=== PATIENT | female | born 1990 | race Caucasian/White ===

== ENCOUNTER 2016-03-30 17:10 | Emergency (ER) | payer OTHER ==
[~2016-03-30] VITALS: Ht 157.5 cm; Wt 90.0 kg
[~2016-03-30 17:10] MED LIST: CITA20TA11 PO; ESTR1PAT10 TD; LEVO25TA2 PO; MECL-114 PO; MULT1CAP33 PO; ZOF8 PO
[2016-03-30 17:13] VITALS: BP 132/97; PULSE 78; RESP 18; O2SAT 100
--- NOTE | 2016-03-30 17:42 | ED.REPORT ---
HPI-Chest Pain Under 40 Date of Service Mar 30, 2016 ED Provider: Jim Bruce Patient is a 25 year old female who presents to the ED complaining of midline chest pain onset one hour ago while studying. She reports that it felt like she had the wind knocked out of her and the episode lasted about 10 minutes. Her most sever pain was a 7/10, radiated up into her throat, and was exacerbated by moving. Associated symptoms include fever and SOB. She denies diaphoresis, leg swelling, palpitations, or any other symptoms. She is not on any medications but does use Estradiol patches. Patient had allergy testing done yesterday. She was seen at Urgent Care last week for cough and has been taking a course of abx due to a possible pneumonia Biaxin She did not take any medications at home to reduce her pain. Nursing Notes Stated Complaint: CHEST PAIN Chief Complaint: Chest Pain Nursing Notes Reviewed: Yes ([employer], [employer] not reconciled) Allergies: Coded Allergies: doxycycline (Verified Allergy, Severe, rash, heat flushing, 11/26/15) meningococcal vaccine A and C (Verified Allergy, Severe, Rash, 11/26/15) tramadol HCl (Verified Allergy, Severe, rash, 11/26/15) tuberculin, purified protein deriva (Verified Allergy, Severe, 11/26/15) Contrast Media (Verified Adverse Reaction, Severe, DIDN'T LIKE THE WAY IT MADE HER FEEL, 11/26/15) Sulfa (Sulfonamide Antibiotics) (Verified Adverse Reaction, Severe, FACIAL FLUSHING, 11/26/15) Uncoded Allergies: PPD (Adverse Reaction, Severe, always reads positive, 10/20/13) Scheduled Citalopram (Citalopram) 20 Mg Tablet 20 MG PO HS Estradiol (Vivelle-Dot) 1 Each Patch.tdsw 1 PATCH TD 2x/week MUST USE VIVELLE-DOT AND NOT THE GENERIC ESTRADIOL(CAUSES HEART PALPITATIONS AND HEAT FLASHES)!! Levothyroxine (Synthroid) 25 Mcg Tablet 12.5-25 MCG PO HS MUST USE SYNTHROID- DO NOT USE GENERIC LEVOTHYROXINE (CAUSES HEART PALPITATION)! 12.5-25mcg take 12.5mcg po HS every other night and alternate with 25mcg po HS every other night Multivitamin (Multivitamins) 1 Each Capsule 1 EACH PO DAILY Scheduled PRN Meclizine (Bonine) 25 Mg Tab.chew 25 MG PO TID PRN PRN For Dizziness Ondansetron (Zofran) 8 Mg Tab 8 MG PO Q 8HRS PRN PRN For Nausea General Time Seen by MD: 17:40 Chief Complaint Chest pain Hx Obtained From: Patient Arrived By: Walk-in Sudden in Onset?: Yes Onset Occurred: Just prior to arrival Symptom Duration: Since onset Recent Healthcare: Recent doctor visit Similar Sx Previous: No Risk Factors PERC Rule Exogenous estrogen use Past Medical History Past Medical History Notes: PERC rule positive due to exogenous estrogen use Past Medical History PCOS UTIs Hypothyroid Anxiety Depression Non-fatty liver disease Reports: Asthma Past Surgical History Removal of both ovaries Reports: Cholecystectomy, Hysterectomy Reports: Tubal ligation Family History Uncle has arythmia Mother has tachycardia with spontaneous conversion after about 20 min. Smoking History Never Smoker Social History Alcohol Use: "Social" Drug Use: Denies drug use Other Social History: Good social support, , Local resident Occupation lives with , works as FITNESS PROFESSIONAL and [employer] Ambulatory Status Independent Review of Systems Constitutional: Reports: Fever Respiratory: Reports: Shortness of breath Cardiovascular: Reports: Chest pain, Denies: Palpitations Musculoskeletal: Denies: Extremity swelling Skin: Denies Diaphoresis Complete sys rev & neg: except as marked. Physical Exam Initial Vital Signs Vital Signs (First) Date Time Temp Pulse Resp B/P Pulse Ox O2 Delivery O2 Flow Rate FiO2 03/30/16 17:13 36.3 78 18 132/97 100 03/30/16 20:14 Room Air Initial VS: Reviewed, Vital signs normal Head / Eyes: Atraumatic, Normocephalic Neck: Full range of motion Abdomen / GI: Soft, Non-tender Skin: Warm, Dry Neurologic: Alert, Oriented, Nonfocal Psychiatric: Mood/affect normal, Behavior normal, Normal thought content General/Constitutional: Awake, Alert, Well appearing, Well developed Respiratory / Chest: Breath sounds NL, Breath sounds = bilat, No respiratory distress Cardiovascular: Heart rate NL, Regular rhythm, Heart sounds NL Interpretation & Diagnostics Lab Results Interpretation Result Diagram: 03/30/16 1840 03/30/16 1840 Test 03/30/16 18:40 White Blood Count 12.7th/mm3 (3.8-10.1) Red Blood Count 5.08mil/mm3 (3.90-5.20) Hemoglobin 14.2g/dL (12.0-15.6) Hematocrit 40.6% (35.0-46.0) Mean Corpuscular Volume 79.9fL (81-100) Mean Corpuscular Hemoglobin 28.0pg (27.0-35.0) Mean Corpuscular Hemoglobin Concent 35.0% (32.0-37.0) Red Cell Distribution Width 13.3% (12.3-15.4) Platelet Count 277bil/L (150-400) Neutrophils (%) (Auto) 68.7% (40-74) Lymphocytes (%) (Auto) 22.4% (14-46) Monocytes (%) (Auto) 6.9% (4-12) Eosinophils (%) (Auto) 1.3% (0-5) Basophils (%) (Auto) 0.4% (0-3) D-Dimer < 0.5mg/L (<0.50) Sodium Level 137mEq/L (134-144) Potassium Level 4.3mEq/L (3.5-5.2) Chloride Level 97mEq/L (97-108) Carbon Dioxide Level 27mmol/L (18-29) Blood Urea Nitrogen 15mg/dL (6-20) Creatinine 1.43mg/dL (0.57-1.00) Estimat Glomerular Filtration Rate 65mL/min (>59) Glucose Level 92mg/dL (60-99) Calcium Level 9.3mg/dL (8.5-10.1) Total Bilirubin 0.7mg/dL (0.0-1.2) Aspartate Amino Transf (AST/SGOT) 19U/L (0-50) Alanine Aminotransferase (ALT/SGPT) 25U/L (0-32) Alkaline Phosphatase 78U/L (25-150) Total Protein 7.2g/dL (6.4-8.4) Albumin 4.4g/dL (3.4-5.0) Hold Ocasio Top Tube Received (Received) Lab Results Interpretation: CBC mild leukocytosis CMP trace renal insufficiency D-dimer negative ECG Interpretation ECG Interpretation: Sinus rate 74 Time: 17:34 Interpreted by: ED physician X-Ray Chest Interpretation Chest Xray Interpretation: IMPRESSION: No acute disease or active disease is seen in the two-view chest. No change is seen since previous x-rays of 03/22/16. Dictated by: Hao Sousa M.D. on 03/30/2016 at 19:58 Approved by: Hao Sousa M.D. on 03/30/2016 at 19:58 View: AP & lat Interpretation / Wet Read by: Interpret - Radiologist Re-Eval/Medical Decision Med Decision/Clinical Course This is a 25-year-old female who has had a cold with some respiratory symptoms over the past weeks, was seen in urgent care and diagnosed with possible bronchitis/early pneumonia started on antibiotic, possibly Biaxin. She is just about to finish it, they have been doing okay but still is uncomfortable cough, and then today while studying had sudden onset of seated significant chest pain , and some shortness of breath. There is no pleuritic discomfort, symptoms lasted 10 minutes and then resolved. She has no diaphoresis, near syncope. She has had no clear PE risk factors except for the fact she wears an estrogen patcht following a hysterectomy so she is PERC positive. No exertional symptoms, no risk factors for coronary disease. EKG is normal. Blood work is normal negative d-dimer. Chest x-ray is negative for pneumothorax , worsening infiltrate or other She requested received a albuterol nebulizer, but will did not have overt bronchospasm my exam. She did feel that it helped so the patient's receiving an albuterol inhaler for use at home for the cough. Reassurance is provided. Not finding evidence of life-threatening disease process. There are no findings to support coronary disease, pulmonary embolus, pneumothorax, pneumonia. Finding indication for additional laboratory testing. Reassurance provided. Patient is discharged much improved condition. Source of Hx: Old records Re-Evaluation/Progress : Time of Eval: 20:00 Patient Status: Condition improved Re-Evaluation/Progress Note: rechecked patient. Discussed lab and imaging results. Reccommended follow up on Kidney function. Discussed plan for discharge. Patient understands and agrees with plan. All questions addressed at this time. Differential Diagnosis: Positive: Chest pain, acute, Negative: Acute coronary syndrome, Acute myocardial infarct, Congestive heart failure, Dysrhythmia, Esophageal rupture, Esophagitis, Gun shot wound chest, Myocarditis, Pericarditis, Pneumomediastinum, Pneumonia, Pneumothorax, Pulmonary edema, Pulmonary embolism, Rib fracture, Stab wound chest Counseled Regarding: Diagnosis, Lab results, Need for follow-up, When/why to return to ED Discharge & Departure Primary Impression: Chest pain Chest pain type: unspecified Qualified Code: R07.9 - Chest pain, unspecified Additional Impression: Respiratory infection Disposition: Home Discharge Condition All VS Reviewed: Yes Condition: Improved Additional Instructions: 1. A dangerous cause of the chest discomfort was not identified. Your heart test (EKG) was normal, no pneumonia was appreciated on chest x-ray today, and your blood tests were normal with a singular exception that your creatinine, a kidney function test, is just marginally elevated at 1.43 and should be rechecked in a few months. 2. Continue complete the antibiotic. 3. Use the albuterol inhaler 2 puffs every 4 hours as needed 4. Symptoms are expected continued to improve with time. 5. Activities as tolerated. 6. Return if new or worsening symptoms occur. Referrals: Brandi Chapa PA-C (PCP) Scribe Attestation Portions of this note were transcribed by Elvis Mcneal. I, Dr. Fernandez personally performed the history, physical exam and medical decision-making; I reviewed and confirmed the accuracy of the information in the transcribed note. Signed by: Elvis Mcneal 03/30/2016, 1379 copies to: Brandi Chapa PA-C, Matthew F MD Mar 30, 2016 17:41 ELVIS MCNEAL Mar 30, 2016 18:27
[2016-03-30 18:52] LABS: BASOPHILS % (AUTO) 0.4 % (0-3); EOSINOPHILS % (AUTO) 1.3 % (0-5); MONOCYTES % (AUTO) 6.9 % (4-12); Mean Corpuscular Volume 79.9 fL (81-100); NEUTROPHILS % (AUTO) 68.7 % (40-74); Platelet Count 277 bil/L (150-400)
--- NOTE | 2016-03-30 19:59 | DRSVH ---
PROCEDURE: X-RAY CHEST, TWO VIEWS ([id number]) INDICATIONS: CP, cough TECHNIQUE: 2 views of the chest were acquired. COMPARISON: [facility], CR, XR CHEST 2VW, 03/22/2016, 14:12. FINDINGS: Surgical changes and devices: ice scraper leads are seen over the chest. Vascular clips suggest p revious cholecystectomy. Lungs and pleura: No pleural effusions or pneumothorax. Lungs are clear. Mediastinum: Mediastinal contours are normal. Heart size is normal. Bones and chest wall: No suspicious bony abnormalities. Soft tissues appear unremarkable. IMPRESSION: No acute disease or active disease is seen in the two-view chest. No change is seen since previous x-rays of 03/22/16. Dictated by: Hao Sousa M.D. on 03/30/2016 at 19:58 Approved by: Hao Sousa M.D. on 03/30/2016 at 19:58
[2016-03-30] MEDS ORDERED: _Albuterol-HFA 60 Puff Inhaler INHALATION PRN (20:05)
[2016-03-30] MEDS ORDERED: Albuterol 2.5 mg/3 mL Inhalation Solution NEB ONE (20:05)
[2016-03-30 20:14] VITALS: PULSE 85; RESP 20; O2SAT 99
[2016-03-30 21:52] VITALS: BP 119/60; PULSE 120; RESP 21; O2SAT 98
== END 2016-03-30 21:56 | disposition home or self-care (01) ==
LOC: SED 17:10
DX: R07.9 Chest pain, unspecified (principal); J98.8 Other specified respiratory disorders; J45.909 Unspecified asthma, uncomplicated; Z86.39 Personal history of other endocrine, nutritional and metabolic disease; Z79.818 Long term (current) use of other agents affecting estrogen receptors and estrogen levels; Z88.1 Allergy status to other antibiotic agents; Z88.2 Allergy status to sulfonamides; Z88.6 Allergy status to analgesic agent; Z88.7 Allergy status to serum and vaccine
CPT/HCPCS: 36415; 71020; 80053; 85025; 85379; 93005; 94640; 94664; 99285; J7613